=== PATIENT | male | born 1940 | race Caucasian/White ===

== ENCOUNTER 2021-05-29 23:59 | Inpatient (IN) ==
[2021-05-30 00:52] LABS: Hematocrit 43 % (42-52); Hemoglobin 14.5 g/dL (14.0-18.0); Mean Corpuscular HGB Conc 34 g/dL (31-36); Mean Corpuscular Hemoglobin 32 pg (27-31); Mean Corpuscular Volume 96 fL (80-94); Mean Platelet Volume 11.4 fL (7.4-10.4); Platelet Count 115 10^3/uL (150-450); Red Blood Count 4.49 10^6 /uL (4.18-5.48); Red Cell Distribution Width 13 % (10-15)
[2021-05-30 00:55] LABS: PCO2 Arterial 41 mmHg (35-45)
[2021-05-30 00:56] LABS: PO2 Arterial 80 mmHg (80-100)
[2021-05-30 01:04] LABS: ABS Lymphocytes 0.6 10^3/ul (1.0-4.8); ABS Monocytes 0.5 10^3/ul (0-0.8); ABS Neutrophils 4.9 10^3/ul (1.5-7.7); Lymphocyte % 9.6 %; Nucleated Red Blood Cells % 0.1
[2021-05-30 01:11] LABS: Albumin 3.7 g/dL (3.2-5.2); Albumin/Globulin Ratio 1.3 (1-3); Calcium 8.8 mg/dL (8.6-10.3); Globulin 2.8 g/dL (2-4); Magnesium 1.8 mg/dL (1.9-2.7); Potassium 4.8 mmol/L (3.5-5.0); Total Bilirubin 0.3 mg/dL (0.2-1.0); Total Protein 6.5 g/dL (6.4-8.9)
[2021-05-30] MEDS ORDERED: Magnesium Sulfate 2 gm BAG 2 GM/50 ML BAG IVPB ONE (01:17)
[2021-05-30 02:04] LABS: Large Platelets Present
[2021-05-30] MEDS ORDERED: Ondansetron 4 mg VIAL 2 MG/ML 2 ml VIAL IV PRN (02:51)
[2021-05-30] MEDS ORDERED: Remdesivir 100 mg Vial 200 MG in NS 0.9% 250 ml 210 ML IV ONE (03:00)
[2021-05-30 03:09] LABS: INR 1.18 (0.86-1.15)
[2021-05-30 03:32] LABS: TSH Ultra Thyroid Stim Horm 2.91 mcIU/mL (0.34-5.60)
[2021-05-30 03:40] LABS: Urine Appearance Clear; Urine Bilirubin Negative (Negative); Urine Blood 2+ (Negative); Urine Color Yellow; Urine Glucose Negative (Negative); Urine Ketones Trace (Negative); Urine Nitrite Negative (Negative); Urine Protein 1+(30 mg/dL) (Negative); Urine Specific Gravity 1.021 (1.002-1.030); Urine Urobilinogen Negative (Negative)
[2021-05-30 03:44] LABS: Urine Bacteria Absent (Absent); Urine Red Blood Cell 1+(3-5/hpf) (Absent); Urine Squamous Epithelial Cell Present (Absent); Urine White Blood Cell Absent (Absent)
[2021-05-30 03:48] LABS: Rapid COVID-19 Molecular Detected (Undetected)
[2021-05-30] MEDS: Enoxaparin 40 MG/0.4 ML SYR SUBCUT SCH (07:54)
[2021-05-30] MEDS: Mometasone/Formoter 200/5 MDI INH SCH ×2 (08:43→20:46)
[2021-05-30] MEDS ORDERED: Albuterol HFA INHALER 8 gm MDI INH PRN (09:49)
[2021-05-30] MEDS ORDERED: Albuterol HFA INHALER 8 gm MDI INH SCH (11:00)
[2021-05-30] MEDS: Nicotine PATCH 14 MG/24 HR PATCH TRANSDERM SCH (11:58)
[2021-05-30] MEDS ORDERED: Lactated Ringers 1000 ml BAG 1,000 ML IV SCH (19:00)
[2021-05-30] MEDS: Albuterol HFA INHALER 8 gm MDI INH SCH (20:45)
[2021-05-31] MEDS: Albuterol HFA INHALER 8 gm MDI INH SCH ×2 (02:03→09:08)
[2021-05-31] MEDS: Mometasone/Formoter 200/5 MDI INH SCH ×2 (08:32→19:32)
[2021-05-31 10:01] LABS: Hematocrit 39 % (42-52); Hemoglobin 13.2 g/dL (14.0-18.0); Mean Corpuscular HGB Conc 34 g/dL (31-36); Mean Corpuscular Hemoglobin 32 pg (27-31); Mean Corpuscular Volume 97 fL (80-94); Mean Platelet Volume 11.3 fL (7.4-10.4); Platelet Count 116 10^3/uL (150-450); Red Blood Count 4.07 10^6 /uL (4.18-5.48); Red Cell Distribution Width 13 % (10-15); White Blood Count 3.9 10^3/uL (3.5-10.8)
[2021-05-31 10:02] LABS: INR 1.19 (0.86-1.15)
[2021-05-31 10:05] LABS: ABS Lymphocytes 0.9 10^3/ul (1.0-4.8); ABS Monocytes 0.2 10^3/ul (0-0.8); ABS Neutrophils 2.8 10^3/ul (1.5-7.7); Lymphocyte % 23.6 %
[2021-05-31 10:14] LABS: Albumin 3.1 g/dL (3.2-5.2); Albumin/Globulin Ratio 1.2 (1-3); Calcium 8.5 mg/dL (8.6-10.3); Globulin 2.5 g/dL (2-4); Magnesium 1.9 mg/dL (1.9-2.7); Potassium 3.9 mmol/L (3.5-5.0); Total Bilirubin 0.3 mg/dL (0.2-1.0); Total Protein 5.6 g/dL (6.4-8.9)
[2021-05-31] MEDS: Nicotine PATCH 14 MG/24 HR PATCH TRANSDERM SCH (10:17)
[2021-05-31] MEDS: Remdesivir 100 mg Vial 100 MG in NS 0.9% 250 ml 230 ML IV SCH (10:17)
[2021-05-31] MEDS: Enoxaparin 40 MG/0.4 ML SYR SUBCUT SCH (10:18)
[2021-06-01 05:13] LABS: INR 1.17 (0.86-1.15)
[2021-06-01 05:19] LABS: Albumin 3.3 g/dL (3.2-5.2); Albumin/Globulin Ratio 1.4 (1-3); Calcium 8.6 mg/dL (8.6-10.3); Globulin 2.4 g/dL (2-4); Potassium 4.3 mmol/L (3.5-5.0); Total Bilirubin 0.3 mg/dL (0.2-1.0); Total Protein 5.7 g/dL (6.4-8.9)
[2021-06-01] MEDS: Remdesivir 100 mg Vial 100 MG in NS 0.9% 250 ml 230 ML IV SCH (08:50)
[2021-06-01] MEDS: Enoxaparin 40 MG/0.4 ML SYR SUBCUT SCH ×2 (08:57→09:05)
[2021-06-01] MEDS: Nicotine PATCH 14 MG/24 HR PATCH TRANSDERM SCH (09:00)
[2021-06-01] MEDS: Mometasone/Formoter 200/5 MDI INH SCH ×2 (10:05→22:21)
[2021-06-02] MEDS: Mometasone/Formoter 200/5 MDI INH SCH ×2 (07:53→19:41)
[2021-06-02 09:36] LABS: INR 1.24 (0.86-1.15)
[2021-06-02 09:47] LABS: Albumin 3.1 g/dL (3.2-5.2); Albumin/Globulin Ratio 1.2 (1-3); Calcium 8.7 mg/dL (8.6-10.3); Globulin 2.5 g/dL (2-4); Total Bilirubin 0.3 mg/dL (0.2-1.0); Total Protein 5.6 g/dL (6.4-8.9)
[2021-06-02] MEDS: Remdesivir 100 mg Vial 100 MG in NS 0.9% 250 ml 230 ML IV SCH (10:13)
[2021-06-02] MEDS: Enoxaparin 40 MG/0.4 ML SYR SUBCUT SCH (10:13)
[2021-06-02] MEDS: Nicotine PATCH 14 MG/24 HR PATCH TRANSDERM SCH (10:14)
[2021-06-03 06:54] LABS: INR 1.24 (0.86-1.15)
[2021-06-03 07:03] LABS: Albumin 3.2 g/dL (3.2-5.2); Albumin/Globulin Ratio 1.3 (1-3); Globulin 2.4 g/dL (2-4); Potassium 4.9 mmol/L (3.5-5.0); Total Bilirubin 0.4 mg/dL (0.2-1.0); Total Protein 5.6 g/dL (6.4-8.9)
[2021-06-03] MEDS: Mometasone/Formoter 200/5 MDI INH SCH (07:57)
[2021-06-03 08:46] VITALS: BP 149/79
[2021-06-03] MEDS: Remdesivir 100 mg Vial 100 MG in NS 0.9% 250 ml 230 ML IV SCH (08:46)
[2021-06-03] MEDS: Nicotine PATCH 14 MG/24 HR PATCH TRANSDERM SCH (08:46)
[2021-06-03] MEDS: Enoxaparin 40 MG/0.4 ML SYR SUBCUT SCH (08:49)
== END 2021-06-03 14:15 | disposition home or self-care (01) | DRG 177 ==
LOC: ED 23:59 → MED 05-30 02:51 → SUATTDRO 05-30 02:51 → MED 05-30 06:21
PROVIDERS: ADMIT Internal Medicine; ATTEND Internal Medicine